=== PATIENT | male | born 1995 | race Caucasian/White ===

== ENCOUNTER 2022-10-18 11:53 | Outpatient (CLI) | payer OTHER ==
--- NOTE | 2022-10-19 00:25 | XRAY Report ---
PROCEDURE: Foot 3 View LT INDICATIONS: LEFT FOOT CONTUSION TECHNIQUE: 3 views of the foot were acquired. COMPARISON: None. FINDINGS: Bones: No fractures or dislocations. No suspicious bony lesions. Soft tissues: No suspicious soft tissue calcifications or masses. IMPRESSION: No acute bony abnormality. If clinical symptoms persist, consider a follow-up exam in 7-10 days. Reviewed by: Josiah Esquivel MD on 10/19/2022 12:23 AM PDT Approved by: Josiah Esquivel MD on 10/19/2022 12:23 AM PDT Station ID: [id number]
== END 2022-10-18 23:59 | disposition home or self-care (01) ==
LOC: DI.S 11:53
PROVIDERS: ATTEND Emergency Medicine
DX: S90.32XA Contusion of left foot, initial encounter (principal)

== ENCOUNTER 2023-08-31 12:16 | Emergency (ER) | payer OTHER ==
--- NOTE | 2023-08-31 12:50 | ED Physician Documentation ---
History of Present Illness - Stated complaint Stated Complaint: FINGER CUTOFF/RT HAND INJ - Chief complaint Chief Complaint: Trauma Ext - History obtained from History obtained from: Patient - History of Present Illness Timing: Today Pain level max: 8 Pain level now: 8 - Additonal information Additional information: 28-year-old male, left-handed, who presents to the emergency department with a amputation of the right third digit, distal phalanx. He states he was changing his brakes today when the tire slid and hit caused the amputation. Unknown last tetanus shot. Review of Systems Constitutional: denies: Fever Cardiac: denies: Chest pain / pressure, Palpitations GI: denies: Vomiting, Diarrhea Skin: denies: Rash Musculoskeletal: denies: Neck pain, Back pain Neurologic: denies: Headache PD PAST MEDICAL HISTORY - Past Medical History Past Medical History: No - Past Surgical History Past Surgical History: No - Present Medications Home Medications: Ambulatory Orders Medication Instructions Recorded Confirmed Ondansetron Odt [Zofran] 4 mg TL Q6H PRN #10 tablet 08/31/23 clindamycin HCL [Cleocin HCl] 300 mg PO Q6H #40 cap 08/31/23 oxyCODONE [Roxicodone] 5 - 10 mg PO Q6H PRN #14 tablet 08/31/23 MDD 6 - Allergies Allergies/Adverse Reactions: Allergies Allergy/AdvReac Type Severity Reaction Status Date / Time Penicillins Allergy Unknown Verified 08/31/23 12:43 - Living Situation Living Arrangement: reports: At home - Social History Does the pt smoke?: No Smoking Status: Never smoker Does the pt drink ETOH?: No Does the pt have substance abuse?: No - Immunizations Immunizations are current?: Yes Immunizations: TDAP >10years/unknown PD ED PE NORMAL - Vitals Vital signs reviewed: Yes - General General: Alert and oriented X 3, No acute distress - HEENT HEENT: Moist mucous membranes - Neck Neck: Supple, no meningeal sign - Cardiac Cardiac: RRR, Strong equal pulses - Respiratory Respiratory: No respiratory distress, Clear bilaterally - Abdomen Abdomen: Soft, Non tender, Non distended - Derm Derm: Warm and dry - Extremities Extremities: Other (R hand - 3rd digit distal finger tip amputation. ) - Neuro Neuro: Alert and oriented X 3 Results - Vitals Vitals: Vital Signs - 24 hr 0608/31/23 08/31/23 12:43 13:33 14:30 Temperature 36.5 C Heart Rate 68 69 68 Respiratory 17 13 16 Rate Blood Pressure 110/68 138/99 H 158/98 H O2 Saturation 98 100 99 08/31/23 14:48 Temperature Heart Rate 68 Respiratory 16 Rate Blood Pressure O2 Saturation 99 Oxygen O2 Source Room air - Rads (name of study) R finger xray Relevant Findings:: Final report received, See rad report Procedures - General procedure General procedure: Distal fingertip amputation, right third digit - Anesthetized with 1% lidocaine in the wound. Dr. Corbin had already rongeured to the bone back. He requested the wound to be loosely approximated, 2 sutures were placed to help reapproximate the wound. Tolerated well. 3-0 sutures used. Neurovascular intact. Bleeding controlled PD Medical Decision Making - ED course Complexity details: reviewed results, re-evaluated patient, considered differential, d/w patient, d/w salon sales consultant (Dr. Corbin) ED course: 28 year old male with a right 3rd digit distal fingertip amputation. Dr. Corbin, orthopedics, came and evaluated the patient. He rongeured the bone back and then asked me to loosely close the area, wrap with xeroform and then clean rolled gauze. Given IV clindamycin here as he is allergic to penicillin. He was also given a dose of IV Dilaudid for pain. Pain well-controlled. Will prescribe pain medication and antibiotics for home. Tetanus up-to-date. Warnings of infection and instructions on wound care given at bedside. Also counseled on how to minimize scarring. Patient was informed that this is a high risk injury and there is a possibility of needing revision. It is imperative that he follows up very closely as directed by Dr. Corbin today. Patient counseled regarding signs and symptoms for which I believe and urgent re-evaluation would be necessary. Patient with good understanding of and agreement to plan and is comfortable going home at this time This document was made in part using voice recognition software. While efforts are made to proofread this document, sound alike and grammatical errors may o ccur. Departure - Departure Disposition: 01 Home, Self Care Clinical Impression: Traumatic amputation of fingertip Qualifiers: Encounter type: initial encounter Qualified Code(s): S68.119A - Complete traumatic metacarpophalangeal amputation of unspecified finger, initial encounter Condition: Good Instructions: ED Laceration Amputation Finger Tip Open Tx Follow-Up: Ben Corbin MD [Provider Admit Priv/Credential] - Within 3 Days [facility] [Provider Group] Prescriptions: clindamycin HCL [Cleocin HCl] 300 mg PO Q6H #40 cap oxyCODONE [Roxicodone] 5 - 10 mg PO Q6H PRN #14 tablet MDD 6 PRN Reason: pain Ondansetron Odt [Zofran] 4 mg TL Q6H PRN #10 tablet PRN Reason: Nausea / Vomiting Comments: Your pressure options were sent to [facility] in [place]. Please take all antibiotics until gone. Please change the outer dressing whenever it becomes dirty or soiled. Please leave the yellow Xeroform gauze in place until seen by orthopedics next week. You were seen by Dr. Corbin in the emergency department today. Please contact the orthopedic office on Saturday to schedule follow-up appointment for next week. Keep the splint in place as much as possible. I am prescribing a short course of narcotic pain medication for you. These are potentially dangerous and addictive medications that should be used carefully. These medications may constipate you. Take an uynl-[id number] stool softener (docusate) twice daily with plenty of water while taking these medications. If you go 24 hours without a bowel movement, take [id number] miralax, per package instructions. Do not drink or drive while taking these medications. If you received narcotic or sedating medications while in the emergency department, do not drive for 24 hours. Store this medication in a safe, secure place and out of reach of children. It is a violation of federal law to give or sell this medication to another person or to use in a manner other than prescribed. The ED will not refill narcotic prescriptions, including prescriptions lost or stolen. To dispose of unwanted medications: 1. [facility] at [address] in [place] has a medication drop box. They accept prescription medications (in pill form) Saturday through Saturday 9:00 a.m. to 5:00 p.m. 2. [facility] accepts prescription medications (in pill form only) for disposal year round. Call for more information. 3. Contact the [facility] for the next [facility] sponsored prescription drug collection event. , [phone], or [phone]; Forms: PCP List Discharge Date/Time: 08/31/23 14:45
--- NOTE | 2023-08-31 13:04 | XRAY Report ---
PROCEDURE: Finger(s) RT INDICATIONS: R 3rd digit amputation TECHNIQUE: AP hand, 2 views of the third finger(s) acquired. COMPARISON: None. FINDINGS: Bones: Minimal amputation of the distal tip of the distal phalanx of the third finger can be seen. Soft tissues: Soft tissue amputation can be seen involving the distal aspect of the third finger. An apparent tourniquet can be seen. IMPRESSION: Distal third finger amputation seen, with minimal missing bone. Reviewed by: Fer Tolliver MD on 08/31/2023 12:03 PM RAVIN Approved by: Fer Tolliver MD on 08/31/2023 12:03 PM RAVIN Station ID: [id number]
[2023-08-31] MEDS: BUPIVACAINE 0.5% PF 10 ML VIAL SUBQ STA (13:07)
[2023-08-31] MEDS: HYDROmorphone 1 MG/ML CARPUJECT IVP STA (13:07)
[2023-08-31] MEDS: TETANUS/DIPHTHERIA/PERTUSSIS 0.5 ML SYRINGE IM ONE (13:17)
[2023-08-31] MEDS: CLINDAMYCIN 900 MG/50 ML 900 MG/50 ML BAG IV ONE (13:25)
[2023-08-31 14:52] VITALS: BP 158/98; O2SAT 99
== END 2023-08-31 14:45 | disposition home or self-care (01) ==
LOC: ED 12:16
DX: S68.112A Complete traumatic metacarpophalangeal amputation of right middle finger, initial encounter (principal); W20.8XXA Other cause of strike by thrown, projected or falling object, initial encounter; Y93.89 Activity, other specified
CPT/HCPCS: 36415; 73140; 90471; 90715; 96374; 96375; 99283; 99284; J1170